=== PATIENT | male | born 1980 | race Caucasian/White ===

== ENCOUNTER 2019-02-07 04:32 | Emergency (ER) | payer OTHER ==
[~2019-02-07] VITALS: Ht 185.4 cm; Wt 83.9 kg
--- NOTE | 2019-02-07 05:18 | NUR ---
BIBSELF FROM HOME TO ER BED 9. AAOX4. NO RESP DISTRESS NOTED. AMBULATORY. C/O PENILE SWELLING. ACCORDING TO PT, HE WENT TO [facility] LAST WEEK D/T PENILE RASH AND GOT PRESCRIBE ANTI FUNGAL MEDICATION. PER PT EVERYTHING WAS GOING WELL UNTILL YESTERDAY WHEN IT STARTED TO SWELL. NOTED SWELLING, REDNESS AND DIFFUSED RASHES ON PENILE SHAFT. PT DENIES PAIN. AWAITING MD FOR EVAL.
--- NOTE | 2019-02-07 06:08 | NUR ---
AT BEDSIDE FOR EVAL.
[2019-02-07] MEDS ORDERED: predniSONE 20 MG TABLET ONE (06:15)
--- NOTE | 2019-02-07 06:27 | NUR ---
Patient discharged to home in stable condition. Written and verbal after care instructions given. Patient verbalizes understanding of instruction. Pt ambulatory with a steady gait
[2019-02-07 06:28] VITALS: BP 133/72
[2019-02-07] MEDS ORDERED: predniSONE 20 MG TABLET PO ONE (06:30)
== END 2019-02-07 06:28 | disposition home or self-care (01) ==
LOC: ER 04:42
DX: L25.9 Unspecified contact dermatitis, unspecified cause (principal); Z98.890 Other specified postprocedural states
CPT/HCPCS: 99283; J7512